=== PATIENT | male | born 1975 | race American Indian/Alaskan Native ===

== ENCOUNTER 2018-11-27 06:51 | Outpatient (CLI) | payer BC ==
--- NOTE | 2018-11-27 08:56 | Cat Scan Report ---
CT CHEST WITHOUT CONTRAST INDICATION / CLINICAL INFORMATION: R079) CHEST PAIN. TECHNIQUE: Axial CT images were obtained through the chest without contrast. Sagittal and coronal reformatted im ages. All CT scans at this location are performed using CT dose reduction for ALARA by means of autom ated exposure control. COMPARISON: None available. FINDINGS: HEART: No significant abnormality. THORACIC AORTA: No significant abnormality. MEDIASTINUM and DAVID: No significant abnormality. LUNGS: No acute air space or interstitial disease. PLEURA: No significant pleural effusion. No pneumothorax. SKELETAL SYSTEM: No significant abnormality. UPPER ABDOMEN: No significant abnormality. ADDITIONAL FINDINGS: None. IMPRESSION: Normal CT chest. Signer Name: Kiran De Dios Jr, MD Signed: 11/27/2018 8:51 AM Workstation Name: [id number]
== END 2018-11-27 06:52 | disposition home or self-care (01) ==
LOC: CT 06:51
PROVIDERS: ATTEND Family Medicine Adult Medicine
DX: R07.9 Chest pain, unspecified (principal)
CPT/HCPCS: 71250